=== PATIENT | female | born 1955 | race American Indian/Alaskan Native ===

== ENCOUNTER 2017-03-11 11:34 | Outpatient (CLI) | payer OTHER ==
[2017-03-11] MEDS ORDERED: PROVENTIL IH ONE (12:18)
== END 2017-03-11 11:35 | disposition home or self-care (01) ==
LOC: PF 11:34
PROVIDERS: ATTEND Internal Medicine
DX: J45.998 Other asthma (principal); M19.90 Unspecified osteoarthritis, unspecified site
CPT/HCPCS: 94060; 94640

== ENCOUNTER 2019-09-15 11:46 | Emergency (ER) | payer SELFPAY ==
--- NOTE | 2019-09-15 12:28 | Event Note ---
ED Screening Note Date of service: 09/15/19 Time: 12:27 ED Screening Note: 63 y o female presents with bilateral hip and knees pain x 2-3 days states fell yesterday coming down steps, no loc no head injury pmh: asthma, htn This initial assessment/diagnostic orders/clinical plan/treatment(s) is/are subject to change based on patients health status, clinical progression and re- assessment by fellow clinical providers in the ED. Further treatment and workup at subsequent clinical providers discretion. Patient/guardian urged not to elope from the ED as their condition may be serious if not clinically assessed and managed. Initial orders include: hip xr
--- NOTE | 2019-09-15 13:08 | XRay Report ---
. BILATERAL HIPS 2 VIEWS WITH PELVIS INDICATION: pain of hip. COMPARISON: None. IMPRESSION: Normal bone mineralization. No evidence for fracture, dislocation, diastasis or bone les ion. Moderate to severe osteoarthritic changes are identified at the right hip. Mild osteoarthritic c hanges at the left hip. No evidence for osteonecrosis. Signer Name: Abrahan Orosco Jr, MD Signed: 09/15/2019 1:04 PM Workstation Name: [id number]
[2019-09-15 16:10] VITALS: BP 154/79
[2019-09-15] MEDS ORDERED: KETOROLAC 60 MG/2 ML INJ IM ONE (16:31)
[2019-09-15] MEDS ORDERED: dexAMETHasone 4 MG/ML VIAL IM ONE (16:31)
--- NOTE | 2019-09-15 16:32 | Emergency Department Report ---
ED Lower Extremity HPI - General Chief Complaint: Extremity Problem,Nontraumatic Stated Complaint: KNEE/HIP PAIN Time Seen by Provider: 09/15/19 16:30 Source: patient Mode of arrival: Ambulatory Limitations: No Limitations - History of Present Illness Initial Comments: 63 yo AA female comes to ER with achy pain b knees and r sciatica pain. no trauma. a/c in nature. no fever or chills. no back or abd pain. Did not see her pcp at [facility] because every time she goes its a different MD. She wants PCP here. MD Complaint: knee injury -: Gradual, days(s) Place: home Improves With: nothing Worsens With: movement - Related Data Previous Rx's Medication Instructions Recorded Last Taken Type Ibuprofen [Motrin] 800 mg PO Q8HR PRN #30 tablet 09/15/19 Unknown Rx predniSONE [Deltasone] 20 mg PO DAILY #5 tablet 09/15/19 Unknown Rx Allergies Allergy/AdvReac Type Severity Reaction Status Date / Time shrimp AdvReac Hives, Verified 03/11/17 12:20 SHORTNESS OF BREATH AND WHEEZING Sulfa (Sulfonamide AdvReac Hives,SHORTNESS Verified 03/11/17 12:20 Antibiotics) OF BREATH AND WHEEZING. ED Review of Systems ROS: Stated complaint: KNEE/HIP PAIN Other details as noted in HPI Comment: All other systems reviewed and negative ED Past Medical Hx - Past Medical History Previous Medical History?: Yes Hx Hypertension: Yes Hx CVA: No Hx Heart Attack/AMI: No Hx Congestive Heart Failure: No Hx Diabetes: No Hx Deep Vein Thrombosis: No Hx Pulmonary Embolism: No Hx GERD: Yes Hx Liver Disease: No Hx Renal Disease: No Hx of Cancer: No Hx Sickle Cell Disease: No Hx Arthritis: Yes Hx Headaches / Migraines: No Hx Seizures: No Hx Kidney Stones: No Hx Psychiatric Treatment: No Hx Asthma: Yes Hx COPD: No Hx Tuberculosis: No Hx Dementia: No Hx HIV: No - Surgical History Past Surgical History?: No - Family History Family history: no significant - Social History Smoking Status: Never Smoker Substance Use Type: None - Medications Home Medications: Home Medications Medication Instructions Recorded Confirmed Last Taken Type Ibuprofen [Motrin] 800 mg PO Q8HR PRN #30 tablet 09/15/19 Unknown Rx predniSONE [Deltasone] 20 mg PO DAILY #5 tablet 09/15/19 Unknown Rx ED Physical Exam - General Limitations: No Limitations General appearance: alert, in no apparent distress - Head Head exam: Present: atraumatic, normocephalic - Eye Eye exam: Present: normal appearance - ENT ENT exam: Present: mucous membranes moist - Neck Neck exam: Present: normal inspection - Respiratory Respiratory exam: Present: normal lung sounds bilaterally. Absent: respiratory distress - Cardiovascular Cardiovascular Exam: Present: regular rate, normal rhythm. Absent: systolic murmur, diastolic murmur, rubs, gallop - GI/Abdominal GI/Abdominal exam: Present: soft, normal bowel sounds - Extremities Exam Extremities exam: Present: normal inspection - Back Exam Back exam: Present: normal inspection - Neurological Exam Neurological exam: Present: alert, oriented X3 - Psychiatric Psychiatric exam: Present: normal affect, normal mood - Skin Skin exam: Present: warm, dry, intact, normal color. Absent: rash ED Course Vital Signs 09/15/19 12 12:26 16:08 Temperature 98.4 F 98.2 F Pulse Rate 82 69 Respiratory 22 18 Rate Blood Pressure 143/86 154/79 O2 Sat by Pulse 98 100 Oximetry ED Lower Extremity MDM - Radiology Data Radiology results: image reviewed - Medical Decision Making xray neg as ordered by MARTIN in triage this is chronic pain sees at [facility] ambulatory with cane medicated for pain dc home with local pcp follow up Vital Signs 09/15/19 09/15/19 12:26 16:08 Temperature 98.4 F 98.2 F Pulse Rate 82 69 Respiratory 22 18 Rate Blood Pressure 143/86 154/79 O2 Sat by Pulse 98 100 Oximetry - Differential Diagnosis a/c pain Critical care attestation.: If time is entered above; I have spent that time in minutes in the direct care of this critically ill patient, excluding procedure time. ED Disposition Clinical Impression: Arthritis, Sciatica Disposition: DC-01 TO HOME OR SELFCARE Is pt being admited?: No Does the pt Need Aspirin: No Condition: Stable Instructions: Arthralgia (ED) Prescriptions: predniSONE [Deltasone] 20 mg PO DAILY #5 tablet Ibuprofen [Motrin] 800 mg PO Q8HR PRN #30 tablet PRN Reason: Pain, Moderate (4-6) Referrals: SHU KRISHNAMURTHY MD [Staff Physician] - 3-5 Days Time of Disposition: 16:31
== END 2019-09-15 18:13 | disposition home or self-care (01) ==
LOC: ED 11:46
DX: M25.562 Pain in left knee (principal); M25.561 Pain in right knee; M25.552 Pain in left hip; I10 Essential (primary) hypertension; Z91.013 Allergy to seafood; Z88.2 Allergy status to sulfonamides
CPT/HCPCS: 73521; J1100; J1885; 96372

== ENCOUNTER 2019-12-09 13:29 | Outpatient (CLI) | payer MEDICARE, MEDICAID ==
[2019-12-09 13:59] LABS: Basophils % (Auto) 0.4 % (0.0-1.8); Eosinophils % (Auto) 0.6 % (0.0-4.3); Hematocrit 40.9 % (30.3-42.9); Hemoglobin 13.3 gm/dl (10.1-14.3); Lymphocytes # (Auto) 1.9 K/mm3 (1.2-5.4); Lymphocytes % (Auto) 28.6 % (13.4-35.0); Mean Corpuscular HGB Conc 33 % (30-34); Mean Corpuscular Volume 83 fl (79-97); Monocytes # (Auto) 0.5 K/mm3 (0.0-0.8); Monocytes % (Auto) 7.4 % (0.0-7.3); Platelet Count 265 K/mm3 (140-440); Red Blood Count 4.91 M/mm3 (3.65-5.03)
[2019-12-09 14:45] LABS: Alanine Aminotransferase 16 units/L (7-56); Albumin 4.1 g/dL (3.9-5); BUN/Creatinine Ratio 20; Blood Urea Nitrogen 16 mg/dL (7-17); Calcium 9.3 mg/dL (8.4-10.2); Chol/HDL Ratio 2.51 %; HDL Cholesterol 81 mg/dL (40-59); Hemolysis Index 28; LDL Cholesterol,Direct 109 mg/dL (50-130)
[2019-12-12 13:20] LABS: Vitamin D, 25-OH, D2 <4 ng/mL
== END 2019-12-09 13:30 | disposition home or self-care (01) ==
LOC: LAB 13:29
PROVIDERS: ATTEND Internal Medicine
DX: I10 Essential (primary) hypertension (principal); E66.01 Morbid (severe) obesity due to excess calories; Z13.29 Encounter for screening for other suspected endocrine disorder; Z13.21 Encounter for screening for nutritional disorder; Z73.9 Problem related to life management difficulty, unspecified; Z79.899 Other long term (current) drug therapy
CPT/HCPCS: 36415; 80053; 80061; 82306; 82607; 83036; 84443; 85025